=== PATIENT | male | born 1950 | race Caucasian/White ===

== ENCOUNTER 2017-08-12 07:42 | Inpatient (IN) | payer SELFPAY ==
[2017-08-12] MEDS ORDERED: methylPREDNISolone Sodium Succinate 125 MG/2 ML SDV IVPUSH ONE (08:01)
[2017-08-12] MEDS ORDERED: Albuterol/Ipratropium 3.0-0.5 MG/3 ML Neb Soln NEB ONE (08:01)
--- NOTE | 2017-08-12 08:05 | EDM.PDOC ---
ED HPI GENERAL MEDICAL PROBLEM - General Chief Complaint: Respiratory Problem Stated Complaint: POSSIBLE PNEUMONIA Time Seen by Provider: 08/12/17 08:04 Source of Information: Reports: Patient - History of Present Illness INITIAL COMMENTS - FREE TEXT/NARRATIVE: HISTORY AND PHYSICAL: History of present illness: [Patient presents with shortness of breath and generalized weakness increasing over the last week denies fever nausea vomiting chills sweats no chest pain headache dizziness palpitation about a urine symptoms ] Review of systems: As per history of present illness and below otherwise all systems reviewed and negative. Past medical history: As per history of present illness and as reviewed below otherwise noncontributory. Surgical history: As per history of present illness and as reviewed below otherwise noncontributory. Social history: No reported history of drug or alcohol abuse. Family history: As per history of present illness and as reviewed below otherwise noncontributory. Physical exam: HEENT: Atraumatic, normocephalic, pupils reactive, negative for conjunctival pallor or scleral icterus, mucous membranes moist, throat clear, neck supple, nontender, trachea midline. Lungs: Clear to auscultation, breath sounds clear on the right, chest nontender. Decreased breath sounds on the left Heart: S1S2, regular, negative for clicks, rubs, or JVD. Abdomen: Soft, nondistended, nontender. Negative for masses or hepatosplenomegaly. Negative for costovertebral tenderness. Pelvis: Stable nontender. Genitourinary: Deferred. Rectal: Deferred. Extremities: Atraumatic, negative for cords or calf pain. Neurovascular unremarkable. Neuro: Awake, alert, oriented. Cranial nerves II through XII unremarkable. Cerebellum unremarkable. Motor and sensory unremarkable throughout. Exam nonfocal. Diagnostics: []CBC CMP UA troponin TB quadrant. Goal EKG Chest 2 views Therapeutics: []DuoNeb Solu-Medrol 125 mg IV Normal saline 1 25 mL per hour Levaquin 750 mg IV Impression: Left sided pneumonia Left pleural effusion []Shortness of breath Definitive disposition and diagnosis as appropriate pending reevaluation and review of above. Head Pain Score (Numeric/FACES): 5 - Related Data Allergies Allergy/AdvReac Type Severity Reaction Status Date / Time No Known Allergies Allergy Verified 08/12/17 07:55 Home Meds: Home Meds . [No Known Home Meds] 05/20/15 [History] Past Medical History - Past Health History Medical/Surgical History: Denies Medical/Surgical History Social & Family History - Tobacco Use Smoking Status *Q: Current Some Day Smoker Years of Tobacco use: 40 - Recreational Drug Use Recreational Drug Use: No ED ROS GENERAL - Review of Systems Review Of Systems: ROS reveals no pertinent complaints other than HPI. ED EXAM, GENERAL - Physical Exam Exam: See Below Course - Vital Signs Last Recorded V/S: Last Vital Signs Temp 98.2 F 08/12/17 07:55 Pulse 95 08/12/17 07:55 Resp 14 08/12/17 07:55 BP 130/86 08/12/17 07:55 Pulse Ox 91 L 08/12/17 07:55 - Orders/Labs/Meds Orders: Active Orders 24 hr Category Date Time Status EKG Documentation Completion [RC] STAT Care 08/12/17 08:01 Active RT Aerosol Therapy [RC] ASDIRECTED Care 08/12/17 08:01 Active Chest 2V [CR] Stat Exams 08/12/17 08:01 Taken CULTURE BLOOD [BC] Stat Lab 08/12/17 09:05 Ordered CULTURE BLOOD [BC] Stat Lab 08/12/17 09:05 Ordered QUANTIFERON TB GOLD [REF] Stat Lab 08/12/17 08:13 Received UA W/MICROSCOPIC [URIN] Stat Lab 08/12/17 08:01 Uncollected Levofloxacin/Dextrose 5%-Water [Levaquin in D5W 750 MG/ Med 08/12/17 09:05 Active 150 ML] 750 mg Premix Bag 1 bag IV ONETIME Sodium Chloride 0.9% [Normal Saline] 1,000 ml Med 08/12/17 08:15 Active IV STAT Blood Culture x2 Reflex Set [OM.PC] Stat Oth 08/12/17 09:05 Ordered Medication Orders Sodium Chloride (Normal Saline) 1,000 mls @ 125 mls/hr IV STAT PIYUSH Last Admin: 08/12/17 08:12 Dose: 125 mls/hr Levofloxacin/Dextrose 750 mg/ (Premix) 150 mls @ 100 mls/hr IV ONETIME ONE Stop: 08/12/17 10:34 Labs: Laboratory Tests 08/12/17 08/12/17 Range/Units 08:00 08:00 WBC 19.45 H (4.0-11.0) K/uL RBC 4.73 (4.50-5.90) M/uL Hgb 15.0 (13.0-17.0) g/dL Hct 42.8 (38.0-50.0) % MCV 90.5 (80.0-98.0) fL MCH 31.7 (27.0-32.0) pg MCHC 35.0 (31.0-37.0) g/dL RDW Std Deviation 42.7 (28.0-62.0) fl RDW Coeff of Erika 13 (11.0-15.0) % Plt Count 323 (150-400) K/uL MPV 9.30 (7.40-12.00) fL Add Manual Diff YES Neutrophils % (Manual) 81 H (48.0-80.0) % Band Neutrophils % 13 % Lymphocytes % (Manual) 4 L (16.0-40.0) % Monocytes % (Manual) 2 (0.0-15.0) % Nucleated RBC % 0.0 /100WBC Absolute Seg Neuts 15.8 H (1.4-5.7) Band Neutrophils # 2.5 Lymphocytes # (Manual) 0.8 (0.6-2.4) Monocytes # (Manual) 0.4 (0.0-0.8) Nucleated RBCs # 0 K/uL Sodium 128 L (136-146) mmol/L Potassium 3.5 (3.5-5.1) mmol/L Chloride 90 L (98-110) mmol/L Carbon Dioxide 26 (21-31) mmol/L BUN 15 (6.0-23.0) mg/dL Creatinine 0.8 (0.6-1.5) mg/dL Est Cr Clr Drug Dosing TNP Estimated GFR (MDRD) > 60.0 ml/min Glucose 106 (60-110) mg/dL Calcium 8.7 L (8.8-10.8) mg/dL Total Bilirubin 0.8 (0.1-1.5) mg/dL AST 91 H (5-40) IU/L ALT 30 (8-54) IU/L Alkaline Phosphatase 141 (40-150) Troponin I < 0.10 (0.0-0.29) NG/ML Total Protein 6.6 (6.0-8.0) g/dL Albumin 2.8 L (3.4-4.8) g/dL Globulin 3.8 H (2.0-3.5) g/dL Albumin/Globulin Ratio 0.7 L (1.3-2.8) Meds: Medications Generic Name Dose Route Start Last Admin Trade Name Juanpablo PRN Reason Stop Dose Admin Sodium Chloride 1,000 mls @ 125 mls/hr 08/12/17 08:15 08/12/17 08:12 Normal Saline IV 125 mls/hr STAT PIYUSH Administration Levofloxacin/Dextrose 750 mg/ 150 mls @ 100 mls/hr 08/12/17 09:05 Premix IV 08/12/17 10:34 ONETIME ONE Discontinued Medications Generic Name Dose Route Start Last Admin Trade Name Freq PRN Reason Stop Dose Admin Albuterol/Ipratropium 3 ml 08/12/17 08:01 08/12/17 08:12 Duoneb 3.0-0.5 Mg/3 Ml NEB 08/12/17 08:02 3 ml ONETIME ONE Administration Methylprednisolone Sodium Succinate 125 mg 08/12/17 08:01 08/12/17 08:12 Solu-Medrol IVPUSH 08/12/17 08:02 125 mg ONETIME ONE Administration Departure - Departure Time of Disposition: 09:08 Disposition: Admitted As Inpatient 66 Condition: Poor Clinical Impression: Pneumonia - Discharge Information Referrals: PCP,None [Primary Care Provider] - Forms: ED Department Discharge - My Orders Last 24 Hours: My Active Orders 08/12/17 08:01 EKG Documentation Completion [RC] STAT RT Aerosol Therapy [RC] ASDIRECTED Chest 2V [CR] Stat UA W/MICROSCOPIC [URIN] Stat 08/12/17 08:13 QUANTIFERON TB GOLD [REF] Stat 08/12/17 08:15 Sodium Chloride 0.9% [Normal Saline] 1,000 ml IV STAT 08/12/17 09:05 CULTURE BLOOD [BC] Stat CULTURE BLOOD [BC] Stat Levofloxacin/Dextrose 5%-Water [Levaquin in D5W 750 MG/150 ML] 750 mg Premix Bag 1 bag IV ONETIME Blood Culture x2 Reflex Set [OM.PC] Stat - Assessment/Plan Last 24 Hours: My Active Orders 08/12/17 08:01 EKG Documentation Completion [RC] STAT RT Aerosol Therapy [RC] ASDIRECTED Chest 2V [CR] Stat UA W/MICROSCOPIC [URIN] Stat 08/12/17 08:13 QUANTIFERON TB GOLD [REF] Stat 08/12/17 08:15 Sodium Chloride 0.9% [Normal Saline] 1,000 ml IV STAT 08/12/17 09:05 CULTURE BLOOD [BC] Stat CULTURE BLOOD [BC] Stat Levofloxacin/Dextrose 5%-Water [Levaquin in D5W 750 MG/150 ML] 750 mg Premix Bag 1 bag IV ONETIME Blood Culture x2 Reflex Set [OM.PC] Stat
[2017-08-12] MEDS ORDERED: Sodium Chloride 0.9% 1,000 ML IV SCH (08:15)
[2017-08-12 08:45] LABS: CHLORIDE,CL 90 mmol/L (98-110); SODIUM,NA 128 mmol/L (136-146)
[2017-08-12] MEDS ORDERED: Levofloxacin/Dextrose 5%-Water 750 MG in Premix Bag 1 BAG IV ONE (09:05)
[2017-08-12] MEDS ORDERED: Ondansetron 4 MG/2 ML SDV IVPUSH PRN (11:37)
[2017-08-12] MEDS ORDERED: Sodium Chloride 0.9% 10 ML Syringe FLUSH PRN (11:37)
[2017-08-12] MEDS ORDERED: Sodium Chloride 0.9% 2.5 ML Syringe FLUSH PRN (11:37)
[2017-08-12] MEDS ORDERED: Albuterol/Ipratropium 3.0-0.5 MG/3 ML Neb Soln NEB PRN (12:16)
[2017-08-12] MEDS: methylPREDNISolone Sodium Succinate 125 MG/2 ML SDV IVPUSH SCH ×2 (13:03→21:21)
[2017-08-12] MEDS: Heparin Sodium 5,000 Units/ML Vial SUBCUT SCH ×2 (13:05→18:58)
[2017-08-12] MEDS: Levofloxacin/Dextrose 5%-Water 750 MG in Premix Bag 1 BAG IV SCH (13:06)
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
--- NOTE | 2017-08-12 14:29 | CR ---
EXAM DATE: 08/12/17 PATIENT'S AGE: 67 Patient: EMILY DUKES Facility: [place], [place] Site . Site : [id number] Study: XRay Chest [id number] 8:53:37 AM Ordering Physician: Doctor Del Castillo Final Report: INDICATION: Short of breath. Pain. Technique: Two-view chest. Findings: Heart and mediastinum are normal in size and configuration. Pulmonary vessels are normal. Left lower lobe consolidation with a moderately large left pleural effusion. Bandlike atelectasis at the right lung base. Right lung otherwise clear. No acute bony abnormalities. Impression: 1. Left lower lobe consolidation with a moderately large left pleural effusion. 2. Bandlike atelectasis at the right lung base. Dictated by Jeanette Brown MD @ Aug 12 2017 9:01AM (Electronic Signature) Report Signed by Proxy. ALDEN
[2017-08-12] MEDS: Acetaminophen 325 MG Tab PO PRN (22:31)
[2017-08-12] MEDS: Piperacillin/Tazobactam 4.5 GM in Sodium Chloride 0.9% 100 ML IV SCH (22:32)
[2017-08-13] MEDS: Heparin Sodium 5,000 Units/ML Vial SUBCUT SCH ×3 (03:44→20:17)
[2017-08-13] MEDS: Piperacillin/Tazobactam 4.5 GM in Sodium Chloride 0.9% 100 ML IV SCH ×4 (03:49→23:33)
[2017-08-13] MEDS: methylPREDNISolone Sodium Succinate 125 MG/2 ML SDV IVPUSH SCH ×2 (06:21→14:37)
[2017-08-13 06:30] LABS: CHLORIDE,CL 100 mmol/L (98-110); SODIUM,NA 135 mmol/L (136-146)
[2017-08-13] MEDS: Levofloxacin/Dextrose 5%-Water 750 MG in Premix Bag 1 BAG IV SCH (12:48)
--- NOTE | 2017-08-13 17:26 | PCM.PN ---
- General Info Date of Service: 08/13/17 Subjective Update: Feeling better , had mild fever last night and zosyn was added to his treatment regimen, no more fever since last night - Review of Systems General: Reports: No Symptoms, Fever HEENT: Reports: No Symptoms Pulmonary: Reports: Shortness of Breath (with exertion, not at rest), Pleuritic Chest Pain, Cough, Sputum Cardiovascular: Reports: No Symptoms Gastrointestinal: Reports: No Symptoms Genitourinary: Reports: No Symptoms Musculoskeletal: Reports: No Symptoms Skin: Reports: No Symptoms Neurological: Reports: No Symptoms, Tingling Psychiatric: Reports: No Symptoms - Patient Data Vitals - Most Recent: Last Vital Signs Temp 97.4 F 08/13/17 12:00 Pulse 69 08/13/17 12:00 Resp 20 08/13/17 12:00 BP 117/65 08/13/17 12:00 Pulse Ox 95 08/13/17 12:00 Weight - Most Recent: 156 lb 4.924 oz I&O - Last 24 Hours: Intake & Output 08/13/17 08/13/17 08/13/17 06:59 14:59 22:59 Intake Total 882 752 6712 Output Total 600 990 Balance 300 250 830 Lab Results Last 24 Hours: Laboratory Results - last 24 hr 08/13/17 08/13/17 Range/Units 05:55 05:55 WBC 16.68 H (4.0-11.0) K/uL RBC 4.41 L (4.50-5.90) M/uL Hgb 13.7 (13.0-17.0) g/dL Hct 40.3 (38.0-50.0) % MCV 91.4 (80.0-98.0) fL MCH 31.1 (27.0-32.0) pg MCHC 34.0 (31.0-37.0) g/dL RDW Std Deviation 43.6 (28.0-62.0) fl RDW Coeff of Erika 13 (11.0-15.0) % Plt Count 331 (150-400) K/uL MPV 9.50 (7.40-12.00) fL Add Manual Diff YES Neutrophils % (Manual) 90 H (48.0-80.0) % Band Neutrophils % 3 % Lymphocytes % (Manual) 5 L (16.0-40.0) % Monocytes % (Manual) 2 (0.0-15.0) % Nucleated RBC % 0.0 /100WBC Absolute Seg Neuts 15.0 H (1.4-5.7) Band Neutrophils # 0.5 Lymphocytes # (Manual) 0.8 (0.6-2.4) Monocytes # (Manual) 0.3 (0.0-0.8) Nucleated RBCs # 0 K/uL Sodium 135 L (136-146) mmol/L Potassium 3.9 (3.5-5.1) mmol/L Chloride 100 (98-110) mmol/L Carbon Dioxide 26 (21-31) mmol/L BUN 21 (6.0-23.0) mg/dL Creatinine 0.8 (0.6-1.5) mg/dL Est Cr Clr Drug Dosing 89.86 mL/min Estimated GFR (MDRD) > 60.0 ml/min Glucose 142 H (60-110) mg/dL Calcium 8.3 L (8.8-10.8) mg/dL Jerson Results Last 24 Hours: Microbiology 08/12/17 09:23 Aerobic Blood Culture - Preliminary Blood - Venous - Lab Draw NO GROWTH AFTER 1 DAY Anaerobic Blood Culture - Preliminary NO GROWTH AFTER 1 DAY 08/12/17 19:03 Gram Stain - Preliminary Sputum - Expectorated Med Orders - Current: Current Medications Acetaminophen (Tylenol) 650 mg PO Q4H PRN PRN Reason: Pain (Mild 1-3)/fever Last Admin: 08/12/17 22:31 Dose: 650 mg Albuterol/Ipratropium (Duoneb 3.0-0.5 Mg/3 Ml) 3 ml NEB Q4HRRT PRN PRN Reason: Wheezing Heparin Sodium (Porcine) (Heparin Sodium) 5,000 units SUBCUT Q8H [facility] Last Admin: 08/13/17 12:49 Dose: 5,000 units Levofloxacin/Dextrose 750 mg/ (Premix) 150 mls @ 100 mls/hr IV Q24H [facility] Last Admin: 08/13/17 12:48 Dose: 100 mls/hr Piperacillin Sod/Tazobactam (Sod 4.5 gm/ Sodium Chloride) 100 mls @ 100 mls/hr IV Q6H [facility] Last Admin: 08/13/17 16:10 Dose: 100 mls/hr Methylprednisolone Sodium Succinate (Solu-Medrol) 80 mg IVPUSH Q8H [facility] Last Admin: 08/13/17 14:37 Dose: 80 mg Ondansetron HCl (Zofran) 4 mg IVPUSH Q4H PRN PRN Reason: Nausea Sodium Chloride (Saline Flush) 10 ml FLUSH ASDIRECTED PRN PRN Reason: Keep Vein Open Sodium Chloride (Saline Flush) 2.5 ml FLUSH ASDIRECTED PRN PRN Reason: Keep Vein Open Discontinued Medications Albuterol/Ipratropium (Duoneb 3.0-0.5 Mg/3 Ml) 3 ml NEB ONETIME ONE Stop: 08/12/17 08:02 Last Admin: 08/12/17 08:12 Dose: 3 ml Sodium Chloride (Normal Saline) 1,000 mls @ 125 mls/hr IV STAT [facility] Last Admin: 08/12/17 08:12 Dose: 125 mls/hr Levofloxacin/Dextrose 750 mg/ (Premix) 150 mls @ 100 mls/hr IV ONETIME ONE Stop: 08/12/17 10:34 Last Admin: 08/12/17 09:16 Dose: 100 mls/hr Methylprednisolone Sodium Succinate (Solu-Medrol) 125 mg IVPUSH ONETIME ONE Stop: 08/12/17 08:02 Last Admin: 08/12/17 08:12 Dose: 125 mg - Exam General: Alert, Oriented, Cooperative HEENT: Pupils Equal, Pupils Reactive Neck: Supple, Trachea Midline, No JVD, No Thyromegaly Lungs: Decreased Breath Sounds, Crackles Cardiovascular: Regular Rate, Regular Rhythm, No Murmurs GI/Abdominal Exam: Normal Bowel Sounds, Soft, Non-Tender, No Organomegaly (Male) Exam: No Hernia, Normal Inspection Back Exam: Normal Inspection Extremities: Normal Inspection Skin: Warm, Dry Wound/Incisions: Healing Well Neurological: No New Focal Deficit Psy/Mental Status: Alert, Normal Affect - Problem List & Annotations (1) Pneumonia SNOMED Code(s): 972400577 Code(s): J18.9 - PNEUMONIA, UNSPECIFIED ORGANISM Status: Acute Current Visit: Yes - Problem List Review Problem List Initiated/Reviewed/Updated: Yes - My Orders Last 24 Hours: My Active Orders 08/12/17 19:03 CULTURE SPUTUM + SMEAR [RM] Stat 08/12/17 22:00 Piperacillin/Tazobactam [Piperacil-Tazobact] 4.5 gm Sodium Chloride 0.9% [ Normal Saline] 100 ml IV Q6H 08/14/17 05:11 BASIC METABOLIC PANEL,BMP [CHEM] AM CBC WITH AUTO DIFF [HEME] AM 08/15/17 05:11 BASIC METABOLIC PANEL,BMP [CHEM] AM CBC WITH AUTO DIFF [HEME] AM 08/16/17 05:11 BASIC METABOLIC PANEL,BMP [CHEM] AM CBC WITH AUTO DIFF [HEME] AM 08/17/17 05:11 BASIC METABOLIC PANEL,BMP [CHEM] AM CBC WITH AUTO DIFF [HEME] AM - Plan Plan:: 67 yo male admitted for left lobar pneumonia and moderate large effussions cont IV levaquin,zosyn iv for possible aspiration decreased I.V methylpredinisolone to 40 daily , incentive spirometry. On RA oxygen. VSS. sputum and blood culture pending , negative day 1, sputum gram stain is neg Hyonatremia: improving PT for ambulation
[2017-08-14] MEDS: Heparin Sodium 5,000 Units/ML Vial SUBCUT SCH ×2 (03:57→14:20)
[2017-08-14] MEDS: Piperacillin/Tazobactam 4.5 GM in Sodium Chloride 0.9% 100 ML IV SCH ×4 (04:03→22:13)
[2017-08-14 06:29] LABS: CHLORIDE,CL 102 mmol/L (98-110); SODIUM,NA 137 mmol/L (136-146)
--- NOTE | 2017-08-14 06:45 | CR ---
EXAM DATE: 08/12/17 PATIENT'S AGE: 67 Patient: EMILY DUKES Facility: [place], [place] Site . Site : [id number] Study: XRay Chest [id number]/25/[id number] 8:32:30 AM Ordering Physician: Aleksandra Donnelly Final Report: INDICATION: Pleural effusion and pneumonia TECHNIQUE: Chest 2 views. COMPARISON: 08/12/2017, 05/20/2015 FINDINGS: Cardiovascular and mediastinum: Heart size is normal. Pulmonary vasculature is normal. Mediastinum is within normal limits. Lungs and pleural spaces: The right lung is clear. No right pleural effusion. Left lower lobe and lingular opacity is less dense on the current exam. There is stable elevation of left hemidiaphragm. Left pleural fluid appears decreased. No pneumothorax. Bones and soft tissues: Healed fracture of the distal 3rd left clavicle. IMPRESSION: Improving left pleural effusion and left lingular and lower lobe opacities. Dictated by Jeffry Ceja MD @ 08/13/2017 8:40:25 AM Dictated by: Jeffry Ceja MD @ 08/13/2017 08:40:28 (Electronic Signature) Report Signed by Proxy. ALDEN
[2017-08-14] MEDS ORDERED: methylPREDNISolone Sodium Succinate 40 MG/1 ML SDV IVPUSH SCH (09:00)
[2017-08-14] MEDS: Levofloxacin/Dextrose 5%-Water 750 MG in Premix Bag 1 BAG IV SCH (13:36)
--- NOTE | 2017-08-14 14:52 | PCM.PN ---
- General Info Date of Service: 08/14/17 Functional Status: Reports: Pain Controlled - Review of Systems General: Reports: Weakness. Denies: Fever, Chills HEENT: Reports: No Symptoms Pulmonary: Reports: Pleuritic Chest Pain, Cough. Denies: Shortness of Breath Cardiovascular: Reports: No Symptoms Gastrointestinal: Reports: No Symptoms Genitourinary: Reports: No Symptoms Skin: Reports: No Symptoms Neurological: Reports: No Symptoms Psychiatric: Reports: No Symptoms - Patient Data Vitals - Most Recent: Last Vital Signs Temp 98.1 F 08/14/17 12:00 Pulse 50 L 08/14/17 12:00 Resp 16 08/14/17 12:00 BP 113/60 08/14/17 12:00 Pulse Ox 94 L 08/14/17 12:00 Weight - Most Recent: 156 lb 4.924 oz I&O - Last 24 Hours: Intake & Output 08/13/17 08/14/17 08/14/17 22:59 06:59 14:59 Intake Total 1920 100 250 Output Total 990 Balance 930 100 250 Lab Results Last 24 Hours: Laboratory Results - last 24 hr 08/14/17 08/14/17 Range/Units 05:57 05:57 WBC 15.48 H (4.0-11.0) K/uL RBC 4.16 L (4.50-5.90) M/uL Hgb 13.0 (13.0-17.0) g/dL Hct 37.3 L (38.0-50.0) % MCV 89.7 (80.0-98.0) fL MCH 31.3 (27.0-32.0) pg MCHC 34.9 (31.0-37.0) g/dL RDW Std Deviation 42.5 (28.0-62.0) fl RDW Coeff of Erika 13 (11.0-15.0) % Plt Count 368 (150-400) K/uL MPV 9.20 (7.40-12.00) fL Add Manual Diff YES Neutrophils % (Manual) 90 H (48.0-80.0) % Band Neutrophils % 4 % Lymphocytes % (Manual) 4 L (16.0-40.0) % Monocytes % (Manual) 2 (0.0-15.0) % Nucleated RBC % 0.0 /100WBC Absolute Seg Neuts 13.9 H (1.4-5.7) Band Neutrophils # 0.6 Lymphocytes # (Manual) 0.6 (0.6-2.4) Monocytes # (Manual) 0.3 (0.0-0.8) Nucleated RBCs # 0 K/uL Sodium 137 (136-146) mmol/L Potassium 3.7 (3.5-5.1) mmol/L Chloride 102 (98-110) mmol/L Carbon Dioxide 26 (21-31) mmol/L BUN 25 H (6.0-23.0) mg/dL Creatinine 0.7 (0.6-1.5) mg/dL Est Cr Clr Drug Dosing 102.69 mL/min Estimated GFR (MDRD) > 60.0 ml/min Glucose 121 H (60-110) mg/dL Calcium 8.1 L (8.8-10.8) mg/dL Jerson Results Last 24 Hours: Microbiology 08/12/17 09:23 Aerobic Blood Culture - Preliminary Blood - Venous - Lab Draw NO GROWTH AFTER 2 DAYS Anaerobic Blood Culture - Preliminary NO GROWTH AFTER 2 DAYS 08/12/17 19:03 Gram Stain - Final Sputum - Expectorated Sputum Culture - Final Normal [facility] Med Orders - Current: Current Medications Acetaminophen (Tylenol) 650 mg PO Q4H PRN PRN Reason: Pain (Mild 1-3)/fever Last Admin: 08/12/17 22:31 Dose: 650 mg Albuterol/Ipratropium (Duoneb 3.0-0.5 Mg/3 Ml) 3 ml NEB Q4HRRT PRN PRN Reason: Wheezing Levofloxacin/Dextrose 750 mg/ (Premix) 150 mls @ 100 mls/hr IV Q24H [facility] Last Admin: 08/14/17 13:36 Dose: 100 mls/hr Piperacillin Sod/Tazobactam (Sod 4.5 gm/ Sodium Chloride) 100 mls @ 100 mls/hr IV Q6H [facility] Last Admin: 08/14/17 09:03 Dose: 100 mls/hr Ondansetron HCl (Zofran) 4 mg IVPUSH Q4H PRN PRN Reason: Nausea Sodium Chloride (Saline Flush) 10 ml FLUSH ASDIRECTED PRN PRN Reason: Keep Vein Open Sodium Chloride (Saline Flush) 2.5 ml FLUSH ASDIRECTED PRN PRN Reason: Keep Vein Open Discontinued Medications Albuterol/Ipratropium (Duoneb 3.0-0.5 Mg/3 Ml) 3 ml NEB ONETIME ONE Stop: 08/12/17 08:02 Last Admin: 08/12/17 08:12 Dose: 3 ml Heparin Sodium (Porcine) (Heparin Sodium) 5,000 units SUBCUT Q8H [facility] Last Admin: 08/14/17 14:20 Dose: Not Given Sodium Chloride (Normal Saline) 1,000 mls @ 125 mls/hr IV STAT [facility] Last Admin: 08/12/17 08:12 Dose: 125 mls/hr Levofloxacin/Dextrose 750 mg/ (Premix) 150 mls @ 100 mls/hr IV ONETIME ONE Stop: 08/12/17 10:34 Last Admin: 08/12/17 09:16 Dose: 100 mls/hr Methylprednisolone Sodium Succinate (Solu-Medrol) 125 mg IVPUSH ONETIME ONE Stop: 08/12/17 08:02 Last Admin: 08/12/17 08:12 Dose: 125 mg Methylprednisolone Sodium Succinate (Solu-Medrol) 80 mg IVPUSH Q8H [facility] Last Admin: 08/13/17 14:37 Dose: 80 mg Methylprednisolone Sodium Succinate (Solu-Medrol) 40 mg IVPUSH DAILY [facility] Stop: 08/14/17 09:01 Last Admin: 08/14/17 09:05 Dose: 40 mg - Exam General: Alert, Oriented HEENT: Pupils Equal, Pupils Reactive Neck: Supple, Trachea Midline, No JVD Lungs: Crackles Cardiovascular: Regular Rate, Regular Rhythm, No Murmurs GI/Abdominal Exam: Normal Bowel Sounds Back Exam: Normal Inspection Extremities: Normal Inspection - Problem List & Annotations (1) Pneumonia SNOMED Code(s): 860918195 Code(s): J18.9 - PNEUMONIA, UNSPECIFIED ORGANISM Status: Acute Current Visit: Yes - Problem List Review Problem List Initiated/Reviewed/Updated: Yes - My Orders Last 24 Hours: My Active Orders 08/14/17 15:00 Enoxaparin [Lovenox] 40 mg SUBCUT Q24H 08/15/17 05:11 BASIC METABOLIC PANEL,BMP [CHEM] AM CBC WITH AUTO DIFF [HEME] AM 08/16/17 05:11 BASIC METABOLIC PANEL,BMP [CHEM] AM CBC WITH AUTO DIFF [HEME] AM 08/17/17 05:11 BASIC METABOLIC PANEL,BMP [CHEM] AM CBC WITH AUTO DIFF [HEME] AM - Plan Plan:: 67 yo male admitted for left lobar pneumonia and moderate large effussions - resolving cont IV levaquin,zosyn iv for possible aspiration d/c solumedrol , incentive spirometry. On RA oxygen. VSS. sputum and blood culture pending , negative day 1, sputum gram stain is neg PT for ambulation
[2017-08-14] MEDS: Enoxaparin 40 MG/0.4 ML Syringe SUBCUT SCH (22:10)
[2017-08-15] MEDS: Piperacillin/Tazobactam 4.5 GM in Sodium Chloride 0.9% 100 ML IV SCH ×4 (04:02→21:20)
[2017-08-15 06:26] LABS: CHLORIDE,CL 104 mmol/L (98-110); SODIUM,NA 137 mmol/L (136-146)
--- NOTE | 2017-08-15 09:36 | CR ---
EXAMINATION: Portable chest radiograph. HISTORY: Pneumonia. Comparison: 08/13/2017 FINDINGS: The trachea is midline. The cardiomediastinal silhouette is stable. There is left basilar consolidati on again noted. There is a small to moderate likely loculated pleural effusion. No pneumothorax. Osseous structures appear unremarkable. IMPRESSION: 1. Stable left basilar consolidation and likely loculated left pleural effusion.
--- NOTE | 2017-08-15 10:23 | PCM.PN ---
- General Info Date of Service: 08/15/17 Admission Dx/Problem (Free Text): Admission Diagnosis/Problem Admission Diagnosis/Problem Pneumonia Subjective Update: Feeling better this morning, feels as though he is breathing easier. Has productive cough still but this is improving as well. Some pleuritic chest pain with deep breathing on L side. No N/V tolerating diet. Ambulating well without oxygen. Functional Status: Reports: Pain Controlled, Tolerating Diet, Ambulating, Urinating - Review of Systems General: Reports: No Symptoms. Denies: Fever, Weakness Pulmonary: Reports: Pleuritic Chest Pain, Cough, Sputum. Denies: Shortness of Breath, Hemoptysis, Wheezing Cardiovascular: Denies: Chest Pain, Palpitations, Dyspnea on Exertion, Edema Gastrointestinal: Reports: No Symptoms. Denies: Abdominal Pain, Nausea, Vomiting Genitourinary: Reports: No Symptoms. Denies: Dysuria, Frequency, Burning Neurological: Reports: No Symptoms. Denies: Confusion Psychiatric: Reports: No Symptoms. Denies: Confusion - Patient Data Vitals - Most Recent: Last Vital Signs Temp 97.4 F 08/15/17 08:00 Pulse 55 L 08/15/17 08:00 Resp 16 08/15/17 08:00 BP 128/78 08/15/17 08:00 Pulse Ox 94 L 08/15/17 08:00 Weight - Most Recent: 70.9 kg I&O - Last 24 Hours: Intake & Output 08/14/17 08/15/17 08/15/17 22:59 06:59 14:59 Intake Total 1340 200 Balance 1340 200 Lab Results Last 24 Hours: Laboratory Results - last 24 hr 08/15/17 08/15/17 Range/Units 05:33 05:33 WBC 15.07 H (4.0-11.0) K/uL RBC 4.37 L (4.50-5.90) M/uL Hgb 13.6 (13.0-17.0) g/dL Hct 39.9 (38.0-50.0) % MCV 91.3 (80.0-98.0) fL MCH 31.1 (27.0-32.0) pg MCHC 34.1 (31.0-37.0) g/dL RDW Std Deviation 44.3 (28.0-62.0) fl RDW Coeff of Erika 13 (11.0-15.0) % Plt Count 416 H (150-400) K/uL MPV 9.10 (7.40-12.00) fL Neut % (Auto) 84.6 H (48.0-80.0) % Lymph % (Auto) 8.4 L (16.0-40.0) % [place] % (Auto) 6.6 (0.0-15.0) % Eos % (Auto) 0.1 (0.0-7.0) % Baso % (Auto) 0.3 (0.0-1.5) % Neut # (Auto) 12.8 H (1.4-5.7) K/uL Lymph # (Auto) 1.3 (0.6-2.4) K/uL [place] # (Auto) 1.0 H (0.0-0.8) K/uL Eos # (Auto) 0.0 (0.0-0.7) K/uL Baso # (Auto) 0.1 (0.0-0.1) K/uL Nucleated RBC % 0.0 /100WBC Nucleated RBCs # 0 K/uL Sodium 137 (136-146) mmol/L Potassium 4.2 (3.5-5.1) mmol/L Chloride 104 (98-110) mmol/L Carbon Dioxide 25 (21-31) mmol/L BUN 23 (6.0-23.0) mg/dL Creatinine 0.7 (0.6-1.5) mg/dL Est Cr Clr Drug Dosing 102.69 mL/min Estimated GFR (MDRD) > 60.0 ml/min Glucose 92 (60-110) mg/dL Calcium 7.6 L (8.8-10.8) mg/dL Jerson Results Last 24 Hours: Microbiology 08/12/17 09:23 Aerobic Blood Culture - Preliminary Blood - Venous - Lab Draw NO GROWTH AFTER 3 DAYS Anaerobic Blood Culture - Preliminary NO GROWTH AFTER 3 DAYS 08/12/17 19:03 Gram Stain - Final Sputum - Expectorated Sputum Culture - Final Normal [facility] Med Orders - Current: Current Medications Acetaminophen (Tylenol) 650 mg PO Q4H PRN PRN Reason: Pain (Mild 1-3)/fever Last Admin: 08/12/17 22:31 Dose: 650 mg Albuterol/Ipratropium (Duoneb 3.0-0.5 Mg/3 Ml) 3 ml NEB Q4HRRT PRN PRN Reason: Wheezing Enoxaparin Sodium (Lovenox) 40 mg SUBCUT Q24H [facility] Last Admin: 08/14/17 22:10 Dose: 40 mg Levofloxacin/Dextrose 750 mg/ (Premix) 150 mls @ 100 mls/hr IV Q24H [facility] Last Admin: 08/14/17 13:36 Dose: 100 mls/hr Piperacillin Sod/Tazobactam (Sod 4.5 gm/ Sodium Chloride) 100 mls @ 100 mls/hr IV Q6H [facility] Last Admin: 08/15/17 09:17 Dose: 100 mls/hr Ondansetron HCl (Zofran) 4 mg IVPUSH Q4H PRN PRN Reason: Nausea Sodium Chloride (Saline Flush) 10 ml FLUSH ASDIRECTED PRN PRN Reason: Keep Vein Open Sodium Chloride (Saline Flush) 2.5 ml FLUSH ASDIRECTED PRN PRN Reason: Keep Vein Open Discontinued Medications Albuterol/Ipratropium (Duoneb 3.0-0.5 Mg/3 Ml) 3 ml NEB ONETIME ONE Stop: 08/12/17 08:02 Last Admin: 08/12/17 08:12 Dose: 3 ml Heparin Sodium (Porcine) (Heparin Sodium) 5,000 units SUBCUT Q8H [facility] Last Admin: 08/14/17 14:20 Dose: Not Given Sodium Chloride (Normal Saline) 1,000 mls @ 125 mls/hr IV STAT [facility] Last Admin: 08/12/17 08:12 Dose: 125 mls/hr Levofloxacin/Dextrose 750 mg/ (Premix) 150 mls @ 100 mls/hr IV ONETIME ONE Stop: 08/12/17 10:34 Last Admin: 08/12/17 09:16 Dose: 100 mls/hr Methylprednisolone Sodium Succinate (Solu-Medrol) 125 mg IVPUSH ONETIME ONE Stop: 08/12/17 08:02 Last Admin: 08/12/17 08:12 Dose: 125 mg Methylprednisolone Sodium Succinate (Solu-Medrol) 80 mg IVPUSH Q8H [facility] Last Admin: 08/13/17 14:37 Dose: 80 mg Methylprednisolone Sodium Succinate (Solu-Medrol) 40 mg IVPUSH DAILY [facility] Stop: 08/14/17 09:01 Last Admin: 08/14/17 09:05 Dose: 40 mg - Exam General: Alert, Oriented, Cooperative, No Acute Distress Neck: Supple Lungs: Clear to Auscultation, Normal Respiratory Effort Cardiovascular: Regular Rate, Regular Rhythm GI/Abdominal Exam: Normal Bowel Sounds, Soft, Non-Tender, No Organomegaly, No Distention, No Abnormal Bruit, No Mass, Pelvis Stable Back Exam: Normal Inspection, Full Range of Motion Extremities: Normal Inspection, Normal Range of Motion, Non-Tender, No Pedal Edema, Normal Capillary Refill Psy/Mental Status: Alert, Normal Affect, Normal Mood - Problem List & Annotations (1) Pleural effusion SNOMED Code(s): 15487867 Code(s): J90 - PLEURAL EFFUSION, NOT ELSEWHERE CLASSIFIED Status: Acute Current Visit: Yes (2) Pneumonia SNOMED Code(s): 625894179 Code(s): J18.9 - PNEUMONIA, UNSPECIFIED ORGANISM Status: Acute Current Visit: Yes Qualifiers: Laterality: left Lung location: lower lobe of lung - Problem List Review Problem List Initiated/Reviewed/Updated: Yes - Plan Plan:: 67 yo male admitted for left lobar pneumonia and moderate large effusions 1. Community acquired pneumonia: Improving. Continue Levaquin and Zosyn. Leukocytosis 15,000, improving. Repeat CXR shows stable L pneumonia and possible loculated L pleural effusion. Consult Dr. Minal Bell, he will attempt thoracentesis today. Will obtain fluid analysis and cultures if possible today. Encourage IS and ambulation today. Not needing Oxygen. Sputum normal respiratory kwasi and BC negative. VTE prophylaxis: Lovenox.
[2017-08-15] MEDS: Levofloxacin/Dextrose 5%-Water 750 MG in Premix Bag 1 BAG IV SCH (12:51)
[2017-08-15] MEDS: Acetaminophen 325 MG Tab PO PRN (21:20)
[2017-08-15] MEDS: Enoxaparin 40 MG/0.4 ML Syringe SUBCUT SCH (21:22)
[2017-08-16] MEDS: Piperacillin/Tazobactam 4.5 GM in Sodium Chloride 0.9% 100 ML IV SCH ×2 (03:46→09:11)
[2017-08-16 05:49] LABS: CHLORIDE,CL 106 mmol/L (98-110); SODIUM,NA 137 mmol/L (136-146)
[2017-08-16] MEDS: Acetaminophen 325 MG Tab PO PRN (09:27)
--- NOTE | 2017-08-16 10:54 | PCM.PN ---
- General Info Date of Service: 08/16/17 Admission Dx/Problem (Free Text): Admission Diagnosis/Problem Admission Diagnosis/Problem Pneumonia Subjective Update: Doing better this am, has been up ambulating in the hallway. Some pleuritic chest pain with deep breaths to the L. Denies SOB. Non productive dry cough. Not needing O2 today Functional Status: Reports: Pain Controlled, Tolerating Diet, Ambulating, Urinating - Review of Systems General: Reports: No Symptoms. Denies: Fever, Weakness Pulmonary: Reports: Pleuritic Chest Pain, Cough. Denies: Shortness of Breath, Hemoptysis, Wheezing Cardiovascular: Reports: No Symptoms. Denies: Chest Pain, Palpitations Gastrointestinal: Denies: Abdominal Pain, Nausea, Vomiting Musculoskeletal: Reports: No Symptoms. Denies: Neck Pain Neurological: Reports: No Symptoms. Denies: Confusion Psychiatric: Reports: No Symptoms - Patient Data Vitals - Most Recent: Last Vital Signs Temp 97.7 F 08/16/17 07:33 Pulse 69 08/16/17 07:33 Resp 17 08/16/17 07:33 BP 132/82 08/16/17 07:33 Pulse Ox 93 L 08/16/17 07:33 Weight - Most Recent: 70.9 kg I&O - Last 24 Hours: Intake & Output 08/15/17 08/16/17 08/16/17 22:59 06:59 14:59 Intake Total 1600 400 100 Output Total 650 600 Balance 950 -200 100 Lab Results Last 24 Hours: Laboratory Results - last 24 hr 08/16/17 08/16/17 Range/Units 04:58 04:58 WBC 14.82 H (4.0-11.0) K/uL RBC 4.58 (4.50-5.90) M/uL Hgb 14.1 (13.0-17.0) g/dL Hct 41.9 (38.0-50.0) % MCV 91.5 (80.0-98.0) fL MCH 30.8 (27.0-32.0) pg MCHC 33.7 (31.0-37.0) g/dL RDW Std Deviation 44.3 (28.0-62.0) fl RDW Coeff of Erika 13 (11.0-15.0) % Plt Count 402 H (150-400) K/uL MPV 9.00 (7.40-12.00) fL Add Manual Diff YES Neutrophils % (Manual) 85 H (48.0-80.0) % Band Neutrophils % 1 % Lymphocytes % (Manual) 8 L (16.0-40.0) % Monocytes % (Manual) 6 (0.0-15.0) % Nucleated RBC % 0.0 /100WBC Absolute Seg Neuts 12.6 H (1.4-5.7) Band Neutrophils # 0.1 Lymphocytes # (Manual) 1.2 (0.6-2.4) Monocytes # (Manual) 0.9 H (0.0-0.8) Nucleated RBCs # 0 K/uL Sodium 137 (136-146) mmol/L Potassium 4.6 (3.5-5.1) mmol/L Chloride 106 (98-110) mmol/L Carbon Dioxide 24 (21-31) mmol/L BUN 17 (6.0-23.0) mg/dL Creatinine 0.7 (0.6-1.5) mg/dL Est Cr Clr Drug Dosing 102.69 mL/min Estimated GFR (MDRD) > 60.0 ml/min Glucose 76 (60-110) mg/dL Calcium 7.2 L (8.8-10.8) mg/dL Jerson Results Last 24 Hours: Microbiology 08/12/17 09:23 Aerobic Blood Culture - Preliminary Blood - Venous - Lab Draw NO GROWTH AFTER 4 DAYS Anaerobic Blood Culture - Preliminary NO GROWTH AFTER 4 DAYS 08/15/17 23:00 Campylobacter Antigen Assay - Final Stool / Feces NEGATIVE CAMPYLOBACTER AG - Final NEGATIVE FOR SHIGA TOXIN 1 - Final NEGATIVE FOR SHIGA TOXIN 2 08/15/17 23:00 Clostridium difficile Toxin A&B (M) - Final Stool / Feces Negative for C.Diff Toxin/AG 08/15/17 23:00 Stool Occult Blood (JERSON) - Final Stool / Feces NEGATIVE OCCULT BLOOD Med Orders - Current: Current Medications Acetaminophen (Tylenol) 650 mg PO Q4H PRN PRN Reason: Pain (Mild 1-3)/fever Last Admin: 08/16/17 09:27 Dose: 650 mg Albuterol/Ipratropium (Duoneb 3.0-0.5 Mg/3 Ml) 3 ml NEB Q4HRRT PRN PRN Reason: Wheezing Enoxaparin Sodium (Lovenox) 40 mg SUBCUT Q24H [facility] Last Admin: 08/15/17 21:22 Dose: 40 mg Levofloxacin/Dextrose 750 mg/ (Premix) 150 mls @ 100 mls/hr IV Q24H [facility] Last Admin: 08/15/17 12:51 Dose: 100 mls/hr Ondansetron HCl (Zofran) 4 mg IVPUSH Q4H PRN PRN Reason: Nausea Sodium Chloride (Saline Flush) 10 ml FLUSH ASDIRECTED PRN PRN Reason: Keep Vein Open Sodium Chloride (Saline Flush) 2.5 ml FLUSH ASDIRECTED PRN PRN Reason: Keep Vein Open Discontinued Medications Albuterol/Ipratropium (Duoneb 3.0-0.5 Mg/3 Ml) 3 ml NEB ONETIME ONE Stop: 08/12/17 08:02 Last Admin: 08/12/17 08:12 Dose: 3 ml Heparin Sodium (Porcine) (Heparin Sodium) 5,000 units SUBCUT Q8H [facility] Last Admin: 08/14/17 14:20 Dose: Not Given Sodium Chloride (Normal Saline) 1,000 mls @ 125 mls/hr IV STAT [facility] Last Admin: 08/12/17 08:12 Dose: 125 mls/hr Levofloxacin/Dextrose 750 mg/ (Premix) 150 mls @ 100 mls/hr IV ONETIME ONE Stop: 08/12/17 10:34 Last Admin: 08/12/17 09:16 Dose: 100 mls/hr Piperacillin Sod/Tazobactam (Sod 4.5 gm/ Sodium Chloride) 100 mls @ 100 mls/hr IV Q6H [facility] Last Admin: 08/16/17 09:11 Dose: 100 mls/hr Methylprednisolone Sodium Succinate (Solu-Medrol) 125 mg IVPUSH ONETIME ONE Stop: 08/12/17 08:02 Last Admin: 08/12/17 08:12 Dose: 125 mg Methylprednisolone Sodium Succinate (Solu-Medrol) 80 mg IVPUSH Q8H [facility] Last Admin: 08/13/17 14:37 Dose: 80 mg Methylprednisolone Sodium Succinate (Solu-Medrol) 40 mg IVPUSH DAILY [facility] Stop: 08/14/17 09:01 Last Admin: 08/14/17 09:05 Dose: 40 mg - Exam General: Alert, Oriented, Cooperative, No Acute Distress Neck: Supple Lungs: Normal Respiratory Effort, Rhonchi (L lower base) Cardiovascular: Regular Rate, Regular Rhythm, No Murmurs GI/Abdominal Exam: Normal Bowel Sounds, Soft, Non-Tender, No Organomegaly, No Distention, No Abnormal Bruit, No Mass, Pelvis Stable Extremities: Normal Inspection, Normal Range of Motion, Non-Tender, No Pedal Edema, Normal Capillary Refill Neurological: No New Focal Deficit Psy/Mental Status: Alert - Problem List & Annotations (1) Pleural effusion SNOMED Code(s): 23972751 Code(s): J90 - PLEURAL EFFUSION, NOT ELSEWHERE CLASSIFIED Status: Acute Current Visit: Yes (2) Pneumonia SNOMED Code(s): 093246741 Code(s): J18.9 - PNEUMONIA, UNSPECIFIED ORGANISM Status: Acute Current Visit: Yes Qualifiers: Laterality: left Lung location: lower lobe of lung - Problem List Review Problem List Initiated/Reviewed/Updated: Yes - My Orders Last 24 Hours: My Active Orders 08/15/17 13:19 AMYLASE,BODY FLUID [BF] Routine CELL COUNT,BODY FLUID [BF] Routine CHOLESTEROL,BODY FLUID [BF] Routine CULTURE BODY FLUID + SMEAR [RM] Routine GLUCOSE,BODY FLUID [BF] Routine LACTATE DEHYDROGENASE,BODY FL [BF] Routine PH,PLEURAL FL [BF] Routine PROTEIN,BODY FLUID [BF] Routine TRIGLYCERIDES,BODY FLUID [BF] Routine 08/15/17 23:00 CULTURE STOOL + CAMPY+SHIGATOX [RM] Routine 08/16/17 16:23 Thoracentesis W/ US Guide [US] Routine - Plan Plan:: 67 yo male admitted for left lobar pneumonia and moderate large effusions 1. Community acquired pneumonia, possible aspiration PNA: Improving. Continue Zosyn will stop Levaquin today. Covering for possible aspiration PNA. Leukocytosis [id number], improving. Consulted Dr. Minal Bell, he will attempt thoracentesis today for L pleural effusion. Will obtain fluid analysis and cultures if possible Encourage IS and ambulation today. Not needing Oxygen. Sputum normal respiratory kwasi and BC negative. VTE prophylaxis: Lovenox. Dispo: Possible DC later today or in am.
[2017-08-16 11:37] VITALS: BP 104/68
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
--- NOTE | 2017-08-16 12:23 | US ---
EXAMINATION: Limited ultrasound of the left chest HISTORY: Pleural effusion COMPARISON: Chest radiograph dated 08/15/2017 TECHNIQUE: Grayscale images obtained of the left chest. FINDINGS/IMPRESSION: Patient presented for a thoracentesis on the left, however visualization of the pleural effusion demonstrates a small highly loculated component within the mid left chest. Minimal f luid is noted within the lung bases are in the apex. Given the findings the patient would likely rec eive minimal benefit from a thoracentesis.
[2017-08-16] MEDS ORDERED: Piperacillin/Tazobactam 4.5 GM in Sodium Chloride 0.9% 100 ML IV SCH (15:00)
== END 2017-08-16 13:00 | disposition home or self-care (01) | DRG 178 ==
LOC: MW.ED 07:42 → MW.MS 09:13
PROVIDERS: ADMIT Internal Medicine; ATTEND Internal Medicine
DX: J69.0 Pneumonitis due to inhalation of food and vomit (principal); J90 Pleural effusion, not elsewhere classified; E87.1 Hypo-osmolality and hyponatremia; D72.829 Elevated white blood cell count, unspecified; F17.200 Nicotine dependence, unspecified, uncomplicated
CPT/HCPCS: 36415; 71010; 71010-26; 71020; 71020-26; 76604; 76604-26; 80048; 80053; 81001; 82272; 84300; 84484; 85025; 86480; 87040; 87046; 87070; 87205; 87324; 87899; 93005; 94640; 96365; 96375; 97161-GP; 99283; 99285-25; A9270-GY; J1644; J1650; J1956; J2543; J2920; J2930; J7030; J7040